=== PATIENT | male | born 1960 | race Caucasian/White ===

== ENCOUNTER 2023-11-17 11:26 | Emergency (ER) | payer OTHER ==
[~2023-11-17] VITALS: Ht 170.2 cm; Wt 81.7 kg
[2023-11-17] MEDS ORDERED: ATOR20 PO ×2 (11:45→11:57)
[2023-11-17] MEDS ORDERED: INSULIN DE100 UNIT/1 SC (11:46)
[2023-11-17] MEDS ORDERED: ELIQUIS5 M2 PO ×2 (11:47→11:57)
[2023-11-17] MEDS ORDERED: TRESIBA FL100 UNIT/2 SC (11:57)
== END 2023-11-17 12:05 | disposition home or self-care (01) ==
LOC: ER 11:26
DX: Z76.0 Encounter for issue of repeat prescription (principal); E11.9 Type 2 diabetes mellitus without complications; Z88.0 Allergy status to penicillin; Z79.899 Other long term (current) drug therapy
CPT/HCPCS: 99281